=== PATIENT | male | born 1955 | race Caucasian/White ===

== ENCOUNTER → 2023-06-28 12:54 | Outpatient (CLI) | payer OTHER, SELFPAY ==
[2023-06-28 14:50] LABS: Influenza A - CEPHEID Flu A NEGATIVE (NEGATIVE); Influenza B - CEPHEID Flu B NEGATIVE (NEGATIVE); Respiratory Syncytial Virus Negative (Negative)
[2023-06-28 15:47] LABS: COVID-19 CEPHEID 4-PLEX PCR POSITIVE (Negative)
== END ==
PROVIDERS: Visit Provider Nurse Practitioner Family
DX: R05.1 Acute cough (principal); R52 Pain, unspecified
CPT/HCPCS: 0241U